=== PATIENT | male | born 1975 | race Caucasian/White ===

== ENCOUNTER 2016-11-24 11:08 | Emergency (ER) | payer OTHER ==
[~2016-11-24] VITALS: Ht 170.2 cm; Wt 79.5 kg
[2016-11-24 11:10] VITALS: Ht 170.2 cm; Wt 79.5 kg
[2016-11-24] MEDS ORDERED: KETOROLAC 60 MG INJ IM STA (11:27)
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
[2016-11-24] MEDS ORDERED: IBUP800T25 PO (11:33)
[2016-11-24] MEDS ORDERED: CYCL-319 PO (11:33)
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
== END 2016-11-24 12:21 | disposition home or self-care (01) ==
LOC: FTE 11:08
DX: S39.92XA Unspecified injury of lower back, initial encounter (principal); V49.40XA Driver injured in collision with unspecified motor vehicles in traffic accident, initial encounter
CPT/HCPCS: 72100; 96372; J1885; Z7502